=== PATIENT | male | born 1955 | race Two or more races ===

== ENCOUNTER 2023-08-30 16:42 | Inpatient (IN) | payer MEDICARE, OTHER ==
[~2023-08-30] VITALS: Ht 172.7 cm; Wt 86.0 kg
[2023-08-30] MEDS ORDERED: CAPT12.55 PO (16:48)
[2023-08-30] MEDS ORDERED: INSLAN SQ (16:48)
[2023-08-30] MEDS ORDERED: METF-1211 PO (16:48)
[2023-08-30] MEDS ORDERED: SODIUM CHLORIDE 0.9% 1,000 ML IV ONE (17:00)
[2023-08-30 17:18] LABS: BASOPHILS % (AUTO) 1.2 % (0.0-2.0); EOSINOPHILS % (AUTO) 1.3 % (1.0-6.0); HEMATOCRIT 41.5 % (41-53); LYMPHOCYTES # (AUTO) 1.8 K/uL (1.0-4.8); LYMPHOCYTES % (AUTO) 24.9 % (22.0-44.0); MEAN CORPUSCULAR HEMOGLOBIN 28.3 pg (26.0-34.0); MEAN CORPUSCULAR HGB CONC 33.7 G/dL (31.0-37.0); MEAN CORPUSCULAR VOLUME 84 fL (80-100); MONOCYTES # (AUTO) 0.9 K/uL (0.1-1.0); MONOCYTES % (AUTO) 12.7 % (2.0-9.0); NEUTROPHILS # (AUTO) 4.3 K/uL (1.8-7.7); NEUTROPHILS % (AUTO) 59.9 % (40.0-70.0); PLATELET COUNT (AUTO) 216 K/uL (150-450); RED BLOOD CELL COUNT(AUTO) 4.94 MIL/uL (4.50-5.90); WHITE BLOOD COUNT (AUTO) 7.2 K/uL (4.5-11.0)
[2023-08-30 17:39] LABS: ALANINE AMINOTRANSFERASE 33 U/L (12-78); ALBUMIN 3.2 g/dL (3.4-5.0); ALKALINE PHOSPHATASE 150 U/L (46-116); ANION GAP 12 mmol/L (8-16); ASPARTATE AMINOTRANSFERASE 20 U/L (15-37); BILIRUBIN,TOTAL 0.5 mg/dL (0.1-1.0); CALCIUM, TOTAL 8.7 mg/dL (8.8-10.5); CARBON DIOXIDE 23 mmol/L (22-29); CHLORIDE 95 mmol/L (98-107); GLOMERULAR FILTR. RATE CALC 55 mL/min (>60); LIPASE 24 U/L (16-77); POTASSIUM 3.6 mmol/L (3.5-5.1); SODIUM SERUM 130 mmol/L (136-145); TOTAL PROTEIN, SERUM 6.8 g/dL (6.4-8.2); TROPONIN I-HIGH SENSITIVITY 4 ng/L (<76); UREA NITROGEN, BLOOD 11 mg/dL (7-18)
[2023-08-30 17:41] LABS: GLUCOSE,RANDOM 718 mg/dL (70-110)
[2023-08-30 17:42] LABS: ACETONE,BLOOD NEGATIVE (NEGATIVE)
[2023-08-30] MEDS ORDERED: INSULIN REGULAR, HUMAN 100 UNITS/ML IVP ONE (17:45)
[2023-08-30 18:43] LABS: APPEARANCE,URINE CLEAR (CLEAR); BILIRUBIN,URINE NEGATIVE (NEGATIVE); COLOR,URINE COLORLESS (YELLOW); GLUCOSE, URINE (UA) >=1000 mg/dL (NEGATIVE); KETONES,URINE NEGATIVE (NEGATIVE); LEUKOCYTE ESTERASE ,URINE NEGATIVE (NEGATIVE); NITRATE,URINE NEGATIVE (NEGATIVE); OCCULT BLOOD,URINE NEGATIVE (NEGATIVE); PROTEIN,URINE NEGATIVE (NEGATIVE); SPECIFIC GRAVITIY, URINE 1.033 (1.003-1.030); UROBILINOGEN,URINE <=1.0 mg/dL (<=1.0)
[2023-08-30 18:53] LABS: BACTERIA,URINE None Seen /HPF (None Seen); RBC,URINE None Seen /HPF (0-2)
[2023-08-30] MEDS ORDERED: ACYCLOVIR 200 MG CAPSULE PO ONE (19:00)
[2023-08-30] MEDS ORDERED: HYDROCODONE/ACETAMINOPHEN 5-325 MG TABLET PO ONE (19:00)
[2023-08-30 19:13] LABS: ABG BASE EXCESS -0.4 mmol/L (-2.0-3.0); ABG CARBOXYHEMOGLOBIN 0.1 % (0.0-1.5); ABG HCO3 24.7 mmol/L (22.0-26.0); ABG METHEMOGLOBIN 0.3 % (0.0-1.5); ABG OXYGEN CONTENT 19.2 mL/dL (15.0-23.0); ABG OXYGEN SATURATION 96.3 % (95.0-98.0); ABG OXYHEMOGLOBIN 95.9 % (94.0-100.0); ABG PCO2 34 mmHg (35-45); ABG TOTAL HEMOGLOBIN 14.2 G/dL (12.0-18.0); PO2, ARTERIAL BG 80.9 mmHg (79.0-87.0); SOURCE, BLOOD GAS ARTERIAL; TEMPERATURE, FAHRENHEIT, BG 98.6 FAHREN (96.0-98.6)
[2023-08-30 19:14] LABS: ALLEN TEST, BLOOD GAS Positive; SITE, BLOOD GAS RT BRACHIAL
[2023-08-30] MEDS ORDERED: ONDANSETRON HCL 4 MG/2 ML VIAL IVP PRN (19:30)
[2023-08-30] MEDS ORDERED: DEXTROSE 50%-WATER 25 GM/50 ML SYRINGE IVP PRN (19:30)
[2023-08-30] MEDS: INSULIN GLARGINE,HUM.REC.ANLOG 100 UNITS/ML SQ SCH ×2 (19:54→21:00)
[2023-08-30] MEDS: DOCUSATE SODIUM 100 MG CAPSULE PO SCH (20:02)
[2023-08-30] MEDS: SODIUM CHLORIDE 0.9% 1,000 ML IV SCH (23:01)
[2023-08-30 23:35] VITALS: BP 123/65; PULSE 62; RESP 20; TEMP 98
[2023-08-31] MEDS: HEPARIN SODIUM,PORCINE 5,000 UNITS/ML VIAL SQ SCH ×4 (00:04→23:59)
[2023-08-31 04:44] VITALS: BP 124/61; PULSE 70; RESP 20; TEMP 98.1
[2023-08-31] MEDS: DEXTROSE 5% IV SCH ×3 (05:39→20:46)
[2023-08-31] MEDS: WATER IV SCH ×3 (05:39→20:46)
[2023-08-31] MEDS: ACYCLOVIR IV SCH ×3 (05:39→20:46)
[2023-08-31] MEDS: INSULIN LISPRO 100 UNITS/ML SQ PRN ×4 (05:44→20:46)
[2023-08-31 06:11] LABS: GLUCOMETER DEV NAME(LOC) 6S.2; GLUCOSE,POINT OF CARE 208 MG/DL (70-110)
[2023-08-31 06:45] LABS: BASOPHILS % (AUTO) 1.3 % (0.0-2.0); HEMATOCRIT 39.5 % (41-53); HEMOGLOBIN 13.5 g/dL (13.5-17.5); LYMPHOCYTES # (AUTO) 2.1 K/uL (1.0-4.8); LYMPHOCYTES % (AUTO) 35.4 % (22.0-44.0); MEAN CORPUSCULAR HEMOGLOBIN 28.5 pg (26.0-34.0); MEAN CORPUSCULAR HGB CONC 34.2 G/dL (31.0-37.0); MEAN CORPUSCULAR VOLUME 83 fL (80-100); MONOCYTES # (AUTO) 0.8 K/uL (0.1-1.0); MONOCYTES % (AUTO) 13.7 % (2.0-9.0); NEUTROPHILS # (AUTO) 2.8 K/uL (1.8-7.7); NEUTROPHILS % (AUTO) 47.6 % (40.0-70.0); PLATELET COUNT (AUTO) 202 K/uL (150-450); RED BLOOD CELL COUNT(AUTO) 4.75 MIL/uL (4.50-5.90); RED CELL DISTRIBUTION WIDTH 13.9 % (11.5-14.5); WHITE BLOOD COUNT (AUTO) 5.9 K/uL (4.5-11.0)
[2023-08-31 07:34] LABS: ANION GAP 9 mmol/L (8-16); CALCIUM, TOTAL 8.3 mg/dL (8.8-10.5); CARBON DIOXIDE 24 mmol/L (22-29); CHLORIDE 106 mmol/L (98-107); CREATININE 0.74 mg/dL (0.60-1.30); GLOMERULAR FILTR. RATE CALC > 60 mL/min (>60); GLUCOSE,RANDOM 218 mg/dL (70-110); SODIUM SERUM 139 mmol/L (136-145); UREA NITROGEN, BLOOD 8 mg/dL (7-18)
[2023-08-31 07:36] VITALS: BP 122/64; PULSE 72; RESP 20; TEMP 98.2
[2023-08-31 07:40] LABS: POTASSIUM 2.8 mmol/L (3.5-5.1)
[2023-08-31] MEDS ORDERED: POTASSIUM CHLORIDE 20 MEQ ER TABLET PO PRN (08:45)
[2023-08-31] MEDS ORDERED: POTASSIUM CHL 10 MEQ/WATER 50 ML IV PRN (08:45)
[2023-08-31] MEDS: DOCUSATE SODIUM 100 MG CAPSULE PO SCH ×2 (09:53→20:41)
[2023-08-31] MEDS: SODIUM CHLORIDE 0.9% 1,000 ML IV SCH (13:01)
[2023-08-31] MEDS: ACETAMINOPHEN 325 MG TABLET PO PRN ×2 (13:04→20:42)
[2023-08-31 15:59] VITALS: BP 126/68; PULSE 74; RESP 20; TEMP 98.4
[2023-08-31 20:05] VITALS: BP 133/74; PULSE 74; RESP 20; TEMP 98.8
[2023-08-31] MEDS: INSULIN GLARGINE,HUM.REC.ANLOG 100 UNITS/ML SQ SCH (20:44)
[2023-09-01 02:31] LABS: GLUCOMETER DEV NAME(LOC) 6N.2B; GLUCOSE,POINT OF CARE 247 MG/DL (70-110)
[2023-09-01 02:31] LABS: GLUCOMETER DEV NAME(LOC) 6N.1B; GLUCOSE,POINT OF CARE 234 MG/DL (70-110)
[2023-09-01 02:31] LABS: GLUCOMETER DEV NAME(LOC) 6S.2; GLUCOSE,POINT OF CARE 255 MG/DL (70-110)
[2023-09-01] MEDS: SODIUM CHLORIDE 0.9% 1,000 ML IV SCH (03:25)
[2023-09-01 04:20] VITALS: BP 110/65; PULSE 70; RESP 20; TEMP 98.9
[2023-09-01] MEDS: WATER IV SCH (05:07)
[2023-09-01] MEDS: ACYCLOVIR IV SCH (05:07)
[2023-09-01] MEDS: DEXTROSE 5% IV SCH (05:07)
[2023-09-01] MEDS: INSULIN LISPRO 100 UNITS/ML SQ PRN (06:02)
[2023-09-01 08:40] VITALS: BP 111/65; PULSE 69; RESP 18; TEMP 98
[2023-09-01] MEDS: DOCUSATE SODIUM 100 MG CAPSULE PO SCH (09:57)
[2023-09-01] MEDS: HEPARIN SODIUM,PORCINE 5,000 UNITS/ML VIAL SQ SCH (09:57)
[2023-09-01] MEDS ORDERED: ACYC-138 PO (10:39)
[2023-09-01 11:36] LABS: GLUCOMETER DEV NAME(LOC) 6N.2B; GLUCOSE,POINT OF CARE 123 MG/DL (70-110)
== END 2023-09-01 13:25 | disposition home or self-care (01) | DRG 866 ==
LOC: EMS 16:48 → 6S 22:57
PROVIDERS: ADMIT Internal Medicine; ATTEND Internal Medicine
DX: B02.7 Disseminated zoster (principal); D84.81 Immunodeficiency due to conditions classified elsewhere; E87.1 Hypo-osmolality and hyponatremia; E11.65 Type 2 diabetes mellitus with hyperglycemia; R74.8 Abnormal levels of other serum enzymes; I10 Essential (primary) hypertension; E87.6 Hypokalemia; E78.00 Pure hypercholesterolemia, unspecified; Z87.891 Personal history of nicotine dependence; Z79.4 Long term (current) use of insulin
CPT/HCPCS: 36600; 80048; 80053; 81001; 82009; 82805; 82962; 83690; 83735; 84132; 84484; 85025; 87081; 93005; 99291; J0133; J1644; J1815; J7030; J7060

== ENCOUNTER 2023-11-11 12:00 | Emergency (ER) | payer MEDICARE, OTHER ==
[~2023-11-11] VITALS: Ht 167.6 cm; Wt 68.2 kg
[~2023-11-11 12:00] MED LIST: ACYC-138 PO; CAPT12.55 PO; INSLAN SQ; METF-1211 PO
[2023-11-11 12:06] VITALS: TEMP 98
[2023-11-11] MEDS ORDERED: TAMS0.4C94 PO (12:08)
[2023-11-11] MEDS ORDERED: METF-446 PO (12:08)
[2023-11-11] MEDS ORDERED: LOSA-381 PO (12:08)
[2023-11-11] MEDS ORDERED: DULA3PEN SQ (12:08)
[2023-11-11] MEDS ORDERED: ATOR-2 PO (12:08)
[2023-11-11 12:53] LABS: BASOPHILS % (AUTO) 1.9 % (0.0-2.0); EOSINOPHILS % (AUTO) 1.7 % (1.0-6.0); HEMATOCRIT 41.4 % (41-53); HEMOGLOBIN 14.4 g/dL (13.5-17.5); LYMPHOCYTES % (AUTO) 23.5 % (22.0-44.0); MEAN CORPUSCULAR HEMOGLOBIN 29.5 pg (26.0-34.0); MEAN CORPUSCULAR HGB CONC 34.7 G/dL (31.0-37.0); MEAN CORPUSCULAR VOLUME 85 fL (80-100); MONOCYTES # (AUTO) 0.8 K/uL (0.1-1.0); NEUTROPHILS # (AUTO) 5.5 K/uL (1.8-7.7); NEUTROPHILS % (AUTO) 63.9 % (40.0-70.0); PLATELET COUNT (AUTO) 351 K/uL (150-450); RED BLOOD CELL COUNT(AUTO) 4.87 MIL/uL (4.50-5.90); RED CELL DISTRIBUTION WIDTH 13.1 % (11.5-14.5); WHITE BLOOD COUNT (AUTO) 8.5 K/uL (4.5-11.0)
[2023-11-11 13:21] LABS: APPEARANCE,URINE CLEAR (CLEAR); BILIRUBIN,URINE NEGATIVE (NEGATIVE); COLOR,URINE LIGHT YELLOW (YELLOW); GLUCOSE, URINE (UA) >=1000 mg/dL (NEGATIVE); KETONES,URINE NEGATIVE (NEGATIVE); LEUKOCYTE ESTERASE ,URINE NEGATIVE (NEGATIVE); NITRATE,URINE NEGATIVE (NEGATIVE); OCCULT BLOOD,URINE TRACE (NEGATIVE); PH,URINE 5.5 (5.0-8.0); PROTEIN,URINE NEGATIVE (NEGATIVE); SPECIFIC GRAVITIY, URINE 1.038 (1.003-1.030); UROBILINOGEN,URINE <=1.0 mg/dL (<=1.0)
[2023-11-11 13:31] LABS: BACTERIA,URINE None Seen /HPF (None Seen); RBC,URINE 0-2 /HPF (0-2); WBC,URINE None Seen /HPF (0-5)
[2023-11-11 13:34] LABS: ALANINE AMINOTRANSFERASE 13 U/L (12-78); ALBUMIN 3.4 g/dL (3.4-5.0); ALKALINE PHOSPHATASE 150 U/L (46-116); ANION GAP 12 mmol/L (8-16); ASPARTATE AMINOTRANSFERASE 9 U/L (15-37); BILIRUBIN,TOTAL 0.6 mg/dL (0.1-1.0); CALCIUM, TOTAL 9.6 mg/dL (8.8-10.5); CARBON DIOXIDE 26 mmol/L (22-29); CHLORIDE 93 mmol/L (98-107); CREATININE 0.88 mg/dL (0.60-1.30); GLOMERULAR FILTR. RATE CALC > 60 mL/min (>60); LIPASE 25 U/L (16-77); POTASSIUM 3.5 mmol/L (3.5-5.1); SODIUM SERUM 131 mmol/L (136-145); TOTAL PROTEIN, SERUM 8.6 g/dL (6.4-8.2); UREA NITROGEN, BLOOD 7 mg/dL (7-18)
[2023-11-11 13:36] LABS: TROPONIN I-HIGH SENSITIVITY 6 ng/L (<76)
[2023-11-11 13:38] LABS: GLUCOSE,RANDOM 430 mg/dL (70-110)
[2023-11-11] MEDS ORDERED: SODIUM CHLORIDE 0.9% 1,000 ML IV ONE (14:15)
[2023-11-11] MEDS ORDERED: FAMOTIDINE 20 MG/2 ML VIAL IVP ONE (14:30)
[2023-11-11 14:54] LABS: TROPONIN I-HIGH SENSITIVITY 7 ng/L (<76)
[2023-11-11 16:36] VITALS: BP 127/82; PULSE 91; RESP 18
[2023-11-11] MEDS ORDERED: POLY17PO PO (18:08)
[2023-11-12 06:41] LABS: GLUCOMETER DEV NAME(LOC) ER.6; GLUCOSE,POINT OF CARE 231 MG/DL (70-110)
== END 2023-11-11 18:39 | disposition home or self-care (01) ==
LOC: EMS 12:14
DX: R10.13 Epigastric pain (principal); K59.00 Constipation, unspecified; E11.9 Type 2 diabetes mellitus without complications; I10 Essential (primary) hypertension; E78.00 Pure hypercholesterolemia, unspecified; Z87.891 Personal history of nicotine dependence
CPT/HCPCS: 99285; 74176; 96374; 76705; 96361; 80053; 81001; 82962; 83690; 84484; 85025; 36415; 74022; 93005; J3490; J7030